=== PATIENT | female | born 1975 | race African-American/Black ===

== ENCOUNTER 2022-03-26 13:04 | Emergency (ER) | payer OTHER ==
[~2022-03-26] VITALS: Ht 157.5 cm; Wt 66.0 kg
[~2022-03-26 13:04] MED LIST: BENAZIPRIL; RESPIRADOL
[2022-03-26 14:22] LABS: HEMOGLOBIN. 10.5 g/dL (12.0-16.0); LYMPHOCYTES % 30.3 % (20.0-50.0); MEAN CORPUSCULAR HEMOGLOBIN 27.7 pg (28.0-32.0); MEAN CORPUSCULAR VOLUME 84.1 fL (81.0-99.0); MEAN PLATELET VOLUME 7.9 fl (7.4-10.4); MONOCYTES % 11.8 % (2.0-8.0); NEUTROPHILS % 55.9 % (40.0-76.0); PLATELET 298 x1000/uL (130-400); RED CELL DISTRIBUTION WIDTH 15.3 % (11.6-14.6)
[2022-03-26 14:28] LABS: HCG SCREEN NEGATIVE
[2022-03-26 14:29] LABS: CHLORIDE 106 mEq/L (98-107)
[2022-03-26 14:38] LABS: ETHANOL BLOOD < 10 mg/dL
[2022-03-26 15:08] LABS: CLARITY URINE CLEAR (CLEAR); COLOR URINE YELLOW (YELLOW); KETONES URINE NEGATIVE (NEGATIVE); LEUKOCYTE ESTERASE URINE TRACE (NEGATIVE); NITRITE URINE NEGATIVE (NEGATIVE); OCCULT BLOOD URINE 3+ (NEGATIVE); PROTEIN URINE TRACE (NEGATIVE); SPECIFIC GRAVITY URINE 1.022 (1.005-1.030); UROBILINOGEN URINE 0.2 E.U./dL (0.2-1.0)
[2022-03-26 15:25] LABS: *AMPHETAMINES SCREEN URINE PRESUMTIVE POSITIVE (NEGATIVE); *BARBITURATES SCREEN URINE NEGATIVE (NEGATIVE); *BENZODIAZEPINES SCREEN URINE NEGATIVE (NEGATIVE); *COCAINE SCREEN URINE PRESUMTIVE POSITIVE (NEGATIVE); CANNABINOID URINE SCREEN NEGATIVE (NEGATIVE); METHADONE URINE SCREEN NEGATIVE (NEGATIVE); OPIATES URINE SCREEN NEGATIVE (NEGATIVE); PHENCYCLIDINE URINE SCREEN NEGATIVE (NEGATIVE)
[2022-03-27 14:39] VITALS: BP 122/61
== END 2022-03-27 14:44 | disposition home or self-care (01) ==
LOC: ER 13:04
DX: F29 Unspecified psychosis not due to a substance or known physiological condition (principal); T43.621A Poisoning by amphetamines, accidental (unintentional), initial encounter; F19.10 Other psychoactive substance abuse, uncomplicated; I10 Essential (primary) hypertension; Y92.9 Unspecified place or not applicable; Z88.0 Allergy status to penicillin
CPT/HCPCS: 36415; 71045; 80053; 80305; 80307; 80320; 80329; 81003; 84484; 84703; 85025; 93005; 99285; G0480

== ENCOUNTER 2023-11-23 12:35 | Emergency (ER) | payer MEDICAID, OTHER ==
[~2023-11-23] VITALS: Ht 167.6 cm; Wt 71.0 kg
[2023-11-23 12:49] VITALS: TEMP 98.5; O2SAT 98
[2023-11-23] MEDS ORDERED: VALA100044 MT (13:02)
[2023-11-23 13:10] VITALS: BP 135/70; PULSE 88; RESP 14
[2023-11-23] MEDS: IBUPROFEN 600MG TABLET PO ONE (13:10)
== END 2023-11-23 14:10 | disposition home or self-care (01) ==
LOC: ER 13:21
DX: B02.9 Zoster without complications (principal); J45.909 Unspecified asthma, uncomplicated; Z98.890 Other specified postprocedural states; Z88.0 Allergy status to penicillin; Z86.59 Personal history of other mental and behavioral disorders; Z88.2 Allergy status to sulfonamides
CPT/HCPCS: 99283